=== PATIENT | female | born 1985 | race Caucasian/White ===

== ENCOUNTER 2018-11-16 05:30 | Inpatient (IN) ==
--- NOTE | 2018-11-15 08:47 | PAT Medication Instructions ---
Medication Instructions Date of Service November 15, 2018 Home Medications Insulin Pen 1 dose DIRECTED PNV cmb#95-ferrous fumarate-FA [] 1 tab PO DAILY acetaminophen 1,000 mg PO NEEDED albuterol sulfate 2 puff INHALATION Q6H NEEDED alprazolam [Xanax] 0.25 mg PO NEEDED folic acid 1 mg PO DAILY magnesium 250 mg PO DAILY DO NOT take the morning of surgery folic acid 1 mg PO DAILY magnesium 250 mg PO DAILY PNV cmb#95-ferrous fumarate-FA [] 1 tab PO DAILY acetaminophen 1,000 mg PO NEEDED alprazolam [Xanax] 0.25 mg PO NEEDED Take morning of surgery With a small sip of water, OTHERWISE NOTHING TO EAT OR DRINK AFTER MIDNIGHT: albuterol sulfate 2 puff INHALATION Q6H NEEDED (if needed; bring to hospital) Take evening before surgery albuterol sulfate 2 puff INHALATION Q6H NEEDED (if needed) acetaminophen 1,000 mg PO NEEDED (if needed) Other Notes If you have any questions please call us at [phone] or [phone] or [phone] or [phone]
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
[2018-11-16] MEDS ORDERED: CEFAZOLIN 3,000 MG in DEXTROSE 5% 50 ML IV SCH (06:00)
[2018-11-16] MEDS ORDERED: LACTATED RINGER'S 1,000 ML IV SCH ×4 (06:00→11:12)
[2018-11-16] MEDS ORDERED: CITRIC ACID/SODIUM CITRATE 15 ML UDC PO SCH ×2 (06:00)
[2018-11-16 06:12] LABS: Appearance Urine Clear (Clear); Bilirubin Urine Negative (Negative); Blood Urine Negative (Negative); Color Urine Dark Yellow; Glucose Urine UA Negative (Negative); Ketones Urine Trace (Negative); Leukocyte Esterase Urine Negative (Negative); Nitrite Urine Negative (Negative); Protein Urine Negative (Negative); Specific Gravity Urine 1.023 (1.000-1.030); Urobilinogen Urine Negative (Negative); pH Urine 5.5 (4.5-7.5)
[2018-11-16 06:29] LABS: Basophils # (auto) 0.01 K/uL (0-0.2); Basophils % (auto) 0.1 %; Eosinophils % (auto) 1.4 %; Hematocrit (blood only) 38.1 % (37-47); Hemoglobin 12.9 g/dL (12.0-16.0); Immature Granulocytes # (auto) 0.04 K/uL (0.00-0.02); Immature Granulocytes % (auto) 0.6 %; Lymphocytes % (auto) 31.1 %; Mean Corpuscular Volume 82.1 fL (80-100); Mean Platelet Volume 9.8 fL (7.4-10.4); Monocytes # (auto) 0.64 K/uL (0.11-0.59); Monocytes % (auto) 9.1 %; Neutrophils # (auto) 4.08 K/uL (1.4-6.5); Neutrophils % (auto) 57.7 %; Platelet Count 327 K/uL (130-400); RDW Coefficient of Variation 16.6 % (11.5-14.5); Red Blood Count 4.64 M/uL (4.2-5.4); White Blood Count 7.07 K/uL (4.8-10.8)
[2018-11-16 06:42] LABS: Mean Corpuscular Hgb Conc 33.9 g/dL (32-36)
--- NOTE | 2018-11-16 07:23 | History & Physical Bridge Note ---
Date of Service November 16, 2018 History & Physical Bridge Note I have examined the patient, reviewed the History & Physical and in the interval since the performance of the History & Physical I have noted the following changes of clinical significance: no changes noted
[2018-11-16] MEDS ORDERED: OXYTOCIN 10 UNITS/ML VIAL ONE (07:31)
[2018-11-16] MEDS ORDERED: fentaNYL citrate 100 MCG/2 ML VIAL ONE (07:31)
[2018-11-16] MEDS ORDERED: MoRPHine SULFATE PF 1 MG/ML 10 ML AMP/VIAL ONE (07:31)
[2018-11-16] MEDS ORDERED: HYDROmorphone INJ 0.5 MG/0.5 ML SYR IV PRN (07:53)
[2018-11-16] MEDS ORDERED: DiphenhydrAMINE HCL 50 MG/ML VIAL IV PRN (07:53)
[2018-11-16] MEDS ORDERED: NALOXONE HCL 0.08 MG in SYRINGE 1.8 ML IV PRN (07:53)
[2018-11-16] MEDS ORDERED: MoRPHine SULFATE PF 1 MG/ML 10 ML AMP/VIAL INT SPINAL ONE (07:53)
[2018-11-16] MEDS ORDERED: ePHEDrine sulfate 50 MG/ML AMP IV PRN (07:53)
[2018-11-16] MEDS ORDERED: ONDANSETRON INJ 2 MG/ML 2 ML VIAL IV PRN (07:53)
[2018-11-16] MEDS ORDERED: NALOXONE HCL 0.4 MG/1 ML VIAL/CARP IV PRN (07:53)
[2018-11-16] MEDS ORDERED: NALBUPHINE HCL INJ 10 MG/ML AMP IV PRN (07:53)
[2018-11-16] MEDS ORDERED: NALOXONE HCL 1 MG in SODIUM CHLORIDE 0.9% 1000ML 1,000 ML IV PRN (07:53)
[2018-11-16] MEDS ORDERED: LACTATED RINGER'S 500 ML IV PRN (07:53)
[2018-11-16] MEDS ORDERED: PHENYLEPHRINE 100MCG/ML 5ML SYR ONE (07:57)
[2018-11-16] MEDS ORDERED: DC INTRASPINAL MORPHINE SCH (08:00)
[2018-11-16] MEDS ORDERED: NO NARCOTICS OR SEDATIVES SCH (08:00)
[2018-11-16] MEDS ORDERED: SODIUM CHLORIDE 0.9% 1000ML 1,000 ML IV SCH (08:00)
--- NOTE | 2018-11-16 08:52 | Post Operative Brief Note ---
Immediate Post Op Note v1 Date of Surgery November 16, 2018 Pre & Post Diagnosis Operation Date: 11/16/18 07:30 Pre-Op Diagnosis: Hx of Section, Request for Sterilization Post-Op Diagnosis: Repeat section; with the of a live female child at 0809 and bilateral tubal ligation. Procedure Operation Date: 11/16/18 07:30 <No data on this case meets the specified criteria> Surgeon Amaya Sandoval MD, FACOG Claims Service Adjustor Dr. Ariane Rockwell, Dr. Michael Tovar PGY1 Estimated Blood Loss 600 Findings Consistent with Post-Op Diagnosis Drains Shi Catheter
--- NOTE | 2018-11-16 09:19 | Anesthesiology Progress Note ---
Date of Service November 16, 2018 Anesthesia Post Procedure Vital Signs Vital Signs: Temp Pulse Resp BP Pulse Ox 11/16/18 09:16 59 L 98 11/16/18 09:12 59 L 94 11/16/18 09:10 51 L 97 11/16/18 09:09 52 L 107/62 11/16/18 09:05 47 L 98 11/16/18 09:00 53 L 103/64 97 11/16/18 08:59 51 L 92 11/16/18 05:48 61 18 119/76 11/16/18 05:40 36.8 C 18 11/16/18 05:37 61 119/76 Transfer of Care Handoff Completed per policy Notes Mental Status: alert / awake / arousable Patient Amnestic to Procedure: Yes Nausea / Vomiting: adequately controlled Pain: adequately controlled Airway Patency, RR, SpO2: stable & adequate BP & HR: stable & adequate Hydration State: stable & adequate Neuraxial Anesthesia: was administered and sensory block is resolving Anesthetic Complications: no major complications apparent and Pt Satisfied with anesthetic care
--- NOTE | 2018-11-16 10:59 | Operative Report ---
DATE OF OPERATION: 11/16/2018 SURGEON: Amaya Houston MD CHIEF CONCIERGE: Luzmaria Rockwell DO, and Dr. Michael Tovar, PGY-1. PREOPERATIVE DIAGNOSES: Intrauterine at 39 weeks, prior section x2, unwanted fertility, and multiparity. POSTOPERATIVE DIAGNOSES: Intrauterine at 39 weeks, prior section x2, unwanted fertility, and multiparity, plus delivery of a viable female infant, 6 pounds 8 ounces, Apgars 8 and 9. PROCEDURE: Repeat low transverse section, bilateral tubal ligation, modified Alexa technique. BLOOD LOSS: 600 mL. ANESTHESIA: Subarachnoid block. HISTORY OF PRESENT ILLNESS: The patient is a 33-year-old 3, para 2-0-0-2, white female who presents at 39 weeks for repeat section and bilateral tubal ligation because of unwanted fertility and multiparity. She understands the risks of both procedures and is willing to proceed. GROSS FINDINGS: Uterus is gravid and consistent with a term in size. There are several sessile fibroids, a 5 cm posterior wall fibroid on the left fundus. There is an anterior lower uterine segment fibroid approximately 3 cm on the right lower uterine segment as well as a very small sessile fibroid in the same area, approximately half a centimeter in size. Otherwise, the ovaries are grossly normal as well as the fallopian tubes. DESCRIPTION OF PROCEDURE: After the patient received adequate subarachnoid block, she was prepped and draped in usual sterile fashion. . A lower transverse incision was made through a prior scar, and this was carried to the fascia with the same scalpel. The fascial incision was then extended bluntly. The edges were then grasped with Nery clamps, and the underlying rectus muscles were bluntly and sharply dissected off the overlying fascia. The rectus muscles were divided on the midline, and the peritoneum was elevated and entered sharply. The bladder was then taken down off the anterior surface of the uterus with Metzenbaum scissors and placed behind the bladder blade. Lower uterine segment was noted to be quite thin. This was entered with the scalpel and extended transversely. Clear fluid was obtained when membranes were ruptured, and the was delivered from the vertex presentation with moderate fundal pressure. Mouth and nasopharynx were suctioned once there was delivery of the head. The rest of the infant delivered easily, and there was spontaneous crying. The infant was quite vigorous on delivery. Cord was clamped and cut, and the was handed off to Dr. Dave who was in attendance as flavor extractor. The placenta was then expressed intact with a 3-vessel cord. The uterine cavity was explored and found to be free of any placental membranes or tissue. The uterus was exteriorized and covered with a clean lap sponge. The uterus was then closed in 2 layers in a running locking imbricating fashion with 0 Monocryl. Hemostasis was noted to be excellent. Attention was then turned to the tubal ligation. The left fallopian tube was identified, followed to its fimbriated end. It was grasped in the mid portion with a Anjelica clamp. A knuckle of tube was developed with a tie of 3-0 plain catgut. The second suture ligature of the same was used to reinforce the tie. The knuckle of tube was then removed, and the ends of the tube were cauterized. The right fallopian tube was then identified to its fimbriated end and was grasped in the mid portion with a Wentworth clamp. A knuckle of tube was developed with a tie of 3-0 plain catgut followed by suture ligature of the same suture. The knuckle of tube was then removed, and the ends of the remaining tube were cauterized with the Bovie. Hemostasis was noted to be excellent at both the tubal sites and the uterine incision. The posterior cul-de-sac was irrigated with a small amount of normal saline. The incisions were examined once more and continued to have excellent hemostasis. The uterus was then gently placed back inside the abdominal cavity. The tubal sites were examined one more time and again continued to have excellent hemostasis as did the uterine incision. Some bleeding at the rectus muscle inferiorly was controlled with the Bovie. The rectus muscles were then closed in the midline with individual stitches of 0 Monocryl. The fascia was closed in a running fashion with 0 Vicryl. Skin edges were reapproximated using a subcuticular stitch of 4-0 Vicryl. The adipose layer was irrigated with normal saline prior to closing the skin. Urine was clear at the end of the case. Mother and infant were doing well after delivery. I attest to the content of the Intraoperative Record and any orders documented therein. Any exceptions are noted below. MTDD
[2018-11-16] MEDS ORDERED: MAGNESIUM HYDROXIDE SUSP 30 ML UDC PO PRN (11:12)
[2018-11-16] MEDS ORDERED: SUPERCREAM 0.870% 15 GM JAR EXT PRN (11:12)
[2018-11-16] MEDS: PRENATAL VITAMIN 1 TAB PO SCH (11:12)
[2018-11-16] MEDS ORDERED: DIPHTHERIA/TETANUS/PERTUSSIS 0.5 ML SYR/VIAL IM ONE (11:12)
[2018-11-16] MEDS ORDERED: SENNA 8.6 MG TAB PO PRN (11:12)
[2018-11-16] MEDS ORDERED: BENZOCAINE 20% AER SPR 82.5 GM CAN EXT PRN (11:12)
[2018-11-16] MEDS: DOCUSATE SODIUM 100 MG CAP PO SCH ×2 (11:12→20:46)
[2018-11-16] MEDS ORDERED: HYDROCORTISONE ACETATE 25 MG SUPP PR PRN (11:12)
[2018-11-16] MEDS: SIMETHICONE 80 MG CHEW PO SCH ×4 (11:20→20:46)
[2018-11-16] MEDS: OXYTOCIN 20 UNITS in LACTATED RINGER'S 1,000 ML IV SCH ×2 (11:27→19:30)
[2018-11-16] MEDS: KETOROLAC 30 MG/ML VIAL IV PRN ×2 (12:03→21:00)
[2018-11-16] MEDS ORDERED: LACTATED RINGER'S 500 ML IV ONE (18:41)
[2018-11-17] MEDS ORDERED: PROMETHAZINE HCL 25 MG in SODIUM CHLORIDE 0.9% 50 ML IV PRN (02:00)
[2018-11-17] MEDS ORDERED: DiphenhydrAMINE HCL 50 MG/ML VIAL IV PRN (02:00)
[2018-11-17] MEDS ORDERED: MEPERIDINE HCL 50 MG/ML CARP IV PRN (02:00)
[2018-11-17] MEDS ORDERED: ONDANSETRON INJ 2 MG/ML 2 ML VIAL IV PRN (02:00)
[2018-11-17] MEDS ORDERED: KETOROLAC 30 MG/ML VIAL IV PRN (02:00)
[2018-11-17] MEDS ORDERED: ZOLPIDEM TARTRATE 5 MG TAB PO PRN (02:00)
[2018-11-17] MEDS: OXYCODONE/ACETAMINOPHEN 5mg/325mg TAB PO PRN ×5 (02:17→21:15)
[2018-11-17] MEDS: IBUPROFEN 600 MG TAB PO PRN ×5 (02:18→21:14)
--- NOTE | 2018-11-17 06:24 | Obstetrical Progress Note ---
Date of Service <Michael Tovar MD - Last Filed: 11/17/18 06:24> November 17, 2018 Assessment & Plan <Michael Tovar MD - Last Filed: 11/17/18 06:24> (1) delivery delivered: Marjan Newman is a 33yo F who presented at 39+ for repeat c/s now s/p LTSC with tubal ligation now POD#1 - Blood type O-, RI, GBS- - gDM diet controlled during - Feels well today. Eating well, voiding well, ambulating well. - well, no problems with latch but pt is very tired overnight. - Surgical c/s incision intact, well healing. - Pain moderately well controlled with ibuprofen 600mg Q4H PRN / APAP+Oxycodone. - Marjan notes she has baseline problems with fatigue not improved with a full nights rest and her has noted some intermittent pauses in nighttime breathing. Overnight she was on pulse-ox and dipped to 91 percent. Suspect she may have an element of sleep apnea, recommend outpatient Kipling scale and sleep study following dc and acute recovery from delivery. - Routine postop care - After discharge will have [address] Houston. Subjective <Michael Tovar MD - Last Filed: 11/17/18 06:24> Ambulation: ambulating normally Voiding: no voiding problems Passing Gas:: Yes Diet Tolerance:: regular diet Lochia:: Moderate Feeding Type:: breast feeding Current Pain Level(1-10): 5 Review of Systems Denies fever, chills, sweats Endorses wheezing, shortness of breath, chest congestion with cold for several days Denies chest pain, palpitations, chest pressure. Denies breast pain. Denies dysuria. Endorses headache. Physical Exam <Michael Tovar MD - Last Filed: 11/17/18 06:24> General: Alert, oriented. No acute distress. Appears fatigued. Cardiac: Regular rate and rhythm, no murmurs/rubs/gallops. Respiratory: End expiratory wheeze in the lower lobes bilaterally. Diffuse mild coarse breath sounds. No increased work of breathing. Symmetrical chest rise. No respiratory distress. Abdomen: Soft, nontender, nondistended. Bowel sounds present. surgical incision intact, clean, dry. No warmth, erythema, discharge, or dehiscence. Uterus: Uterine fundus firm, palpable 1cm below umbilicus. Lower Extremities: No lower extremity edema or swelling. No deep calf pain. Trina's negative bilaterally. Results & Data <Michael Tovar MD - Last Filed: 11/17/18 06:24> Vital Signs (Past 12 Hours) Vital Signs Temp Pulse Resp BP Pulse Ox 11/17/18 04:00 36.6 C 61 16 112/69 97 11/17/18 01:30 16 97 11/17/18 00:45 36.8 C 61 15 99/61 L 95 11/17/18 00:30 16 98 11/16/18 23:30 17 97 11/16/18 22:30 15 96 11/16/18 21:30 16 97 11/16/18 20:45 37.0 C 67 16 101/63 96 11/16/18 20:30 15 98 11/16/18 19:30 17 96 11/16/18 18:30 18 98 <Amaya Sandoval MD, FACOG - Last Filed: 11/17/18 07:00> Co-Signing Physician Notes Resident Physician Supervision Note: I was present with Dr. Michael Tovar PGY1 during the history and exam. I discussed the case with the resident and agree with the findings and plan as documented in the note. Any exceptions or clarifications are listed here: [None] Documented By: Amaya Sandoval MD, FACOG Resident Activity Tracking <Michael Tovar MD - Last Filed: 11/17/18 06:24> Resident Involvement: Resident Care Provided Care Provided: Adult Hospital Medicine
[2018-11-17 06:55] LABS: Basophils # (auto) 0.01 K/uL (0-0.2); Basophils % (auto) 0.1 %; Eosinophils # (auto) 0.18 K/uL (0-0.5); Hematocrit (blood only) 33.7 % (37-47); Hemoglobin 11.6 g/dL (12.0-16.0); Immature Granulocytes # (auto) 0.04 K/uL (0.00-0.02); Immature Granulocytes % (auto) 0.4 %; Lymphocytes # (auto) 2.08 K/uL (1.2-3.4); Mean Corpuscular Hgb Conc 34.4 g/dL (32-36); Mean Corpuscular Volume 82.2 fL (80-100); Mean Platelet Volume 9.5 fL (7.4-10.4); Monocytes # (auto) 0.55 K/uL (0.11-0.59); Monocytes % (auto) 6.1 %; Neutrophils # (auto) 6.17 K/uL (1.4-6.5); Neutrophils % (auto) 68.4 %; Platelet Count 264 K/uL (130-400); RDW Coefficient of Variation 16.4 % (11.5-14.5); RDW Standard Deviation 49.1 fL (36.4-46.3); White Blood Count 9.03 K/uL (4.8-10.8)
[2018-11-17] MEDS: SIMETHICONE 80 MG CHEW PO SCH ×4 (07:37→20:40)
[2018-11-17] MEDS: PRENATAL VITAMIN 1 TAB PO SCH (07:38)
[2018-11-17] MEDS: DOCUSATE SODIUM 100 MG CAP PO SCH ×2 (07:38→20:40)
[2018-11-17] MEDS ORDERED: COUGH DROP (SUGAR FREE) LOZ 24 LOZ/1 BOX BUCCAL ONE (07:49)
--- NOTE | 2018-11-17 11:04 | Anesthesiology Progress Note ---
Date of Service November 17, 2018 Anesthesia Post Procedure Vital Signs Vital Signs: Temp Pulse Pulse Resp BP BP Pulse Ox 11/17/18 07:38 36.5 C 55 L 20 105/61 11/17/18 04:00 36.6 C 61 16 112/69 97 11/17/18 01:30 16 97 11/17/18 00:45 36.8 C 61 15 99/61 L 95 11/17/18 00:30 16 98 11/16/18 23:30 17 97 11/16/18 22:30 15 96 11/16/18 21:30 16 97 11/16/18 20:45 37.0 C 67 16 101/63 96 11/16/18 20:30 15 98 11/16/18 19:30 17 96 11/16/18 18:30 18 98 11/16/18 17:30 18 98 11/16/18 16:30 18 98 11/16/18 15:30 18 98 11/16/18 15:00 36.5 C 57 L 18 120/78 99 11/16/18 14:40 18 98 11/16/18 13:40 46 L 18 112/64 99 11/16/18 12:40 48 L 18 112/66 98 11/16/18 12:10 51 L 18 114/66 96 11/16/18 11:40 36.4 C L 44 L 18 105/65 94 11/16/18 11:26 52 L 92 11/16/18 11:21 46 L 93 11/16/18 11:19 44 L 113/64 11/16/18 11:16 48 L 92 11/16/18 11:11 53 L 92 11/16/18 11:10 49 L 107/62 89 L 11/16/18 11:06 48 L 92 Pain Intensity Abdomen: Pain Intensity: 5 Transfer of Care Handoff Completed per policy Notes Mental Status: alert / awake / arousable Patient Amnestic to Procedure: Yes Nausea / Vomiting: adequately controlled Pain: adequately controlled Airway Patency, RR, SpO2: stable & adequate BP & HR: stable & adequate Hydration State: stable & adequate Anesthetic Complications: no major complications apparent
[2018-11-17] MEDS ORDERED: BISACODYL 5 MG TABEC PO SCH (20:00)
[2018-11-18] MEDS: IBUPROFEN 600 MG TAB PO PRN ×2 (03:31→08:02)
[2018-11-18] MEDS: OXYCODONE/ACETAMINOPHEN 5mg/325mg TAB PO PRN ×2 (03:32→08:03)
[2018-11-18 06:34] LABS: Hematocrit (blood only) 32.7 % (37-47)
[2018-11-18] MEDS: SIMETHICONE 80 MG CHEW PO SCH (08:02)
[2018-11-18] MEDS: PRENATAL VITAMIN 1 TAB PO SCH (08:02)
[2018-11-18] MEDS: DOCUSATE SODIUM 100 MG CAP PO SCH (08:02)
[2018-11-18] MEDS ORDERED: BISACODYL 10 MG SUPP PR PRN (08:43)
--- NOTE | 2018-11-18 08:58 | Obstetrical Progress Note ---
Date of Service November 18, 2018 Assessment & Plan (1) delivery delivered: POD#2 doing well. Healing well from CS. Reviewed discharge instructions. For ongoing URI symptoms, patient will see PCP early this week. Followup office 6w. Subjective Ambulation: ambulating normally Voiding: no voiding problems Diet Tolerance:: regular diet Lochia:: Moderate Feeding Type:: bottle feeding Physical Exam Constitutional WD/WN, vitals as above no acute distress Respiratory normal respiratory effort Cardiovascular Rate/Rhythm: regular rate and regular rhythm Gastrointestinal (Abdomen) Inspection/Auscultation: abdomen normal to inspection; abdomen not distended Percussion/Palpation: abdomen soft Incision CDI Genitourinary OB Exam Abdomen: + fundal height Fundus: + firm; not tender Results & Data Vital Signs (Past 12 Hours) Vital Signs Temp Pulse Pulse Resp BP Pulse Ox 11/18/18 07:35 36.5 C 57 L 18 123/79 98 11/17/18 23:00 36.6 C 58 L 18 121/75 97
--- NOTE | 2018-11-20 01:37 | Discharge Summary ---
PRINCIPAL DIAGNOSIS: Intrauterine at term, prior section x2, unwanted fertility and multiparity. PRINCIPAL PROCEDURE: Repeat low transverse section and bilateral modified Alexa tubal ligation. HISTORY: The patient is a 33-year-old 3, para 2-0-0-2, white female who presented at 39 weeks for repeat section and bilateral tubal ligation. She underwent the procedure without any complications. She had an unremarkable postop course except for preadmission issues of upper respiratory symptoms for which she was taking an inhaler and a fractured right ankle for which she is wearing a boot and an Rodri bandage. Neither one of these other preadmission issues worsened during her hospital stay. She was eating regular food on her first hospital day, ambulating without difficulty, voiding without difficulty. She remained afebrile throughout her hospital stay. The hemoglobin on admission was 12.9, hematocrit 38.1. First postop day hemoglobin 11.6, hematocrit of 33.7; second postop day hemoglobin 11.0, hematocrit 32.7. She was sent home in good condition with prescriptions for Percocet 1 or 2 tablets p.o. q. 4 hours p.r.n. pain and ibuprofen 600 mg p.o. q. 4 hours p.r.n. pain. She will follow up with her PCP for her ongoing upper respiratory symptoms and with [facility] in [place] for her fractured ankle for further treatment. She is to call for a temperature of 101 degrees or higher, heavy vaginal bleeding, burning with urination, increased redness, drainage or pain in her incision, or any other concerns. She will be seen in the office in 6 weeks for a postop and visit.
== END 2018-11-18 10:17 | disposition home or self-care (01) | DRG 785 ==
LOC: 4S1 05:30 → EDSTATUS 07:30 → 4S2 11:45